=== PATIENT | female | born 1955 | race Hispanic/Latino ===

== ENCOUNTER 2020-06-27 14:15 | Outpatient (RCR) | payer BC, SELFPAY ==
--- NOTE | 2020-05-28 20:40 | PT.OIE ---
Current Diagnoses Muscle weakness (generalized) (05/28/20) Strain of muscle(s) and tendon(s) of the rotator cuff of left shoulder, initial encounter (05/28/20) Visit Care Team Role Provider Type Kristen Barriga MD Primary Care Provider Non-Staff Specialty: Family Practice Address: [address] [place] [address] [address], [place], [address] Email: Attending Provider Referring Provider Specialty: Address: Phone: Fax: Email: Physical Therapy Initial Evaluation PT-OP-A Visit Information Start: 05/27/20 17:54 Freq: Status: Active Protocol: Document 05/28/20 11:23 LRN (Rec: 05/28/20 12:19 LRN [id number]) Out-Patient Physical Therapy Visit Information Visit Information Visit Type Initial Evaluation Visit Start Time 11: Visit Stop Time 12:14 Total Visit Minutes 51 Visit Number 1 Evaluation Information Evaluation Date 05/28/20 Precautions Precautions Arthritis in shoulders, Benign Melanoma removed x 4 (back, neck, L arm deltoid region), Depression controlled by medication, Neuropathy ( burning pain if on feet too long) in feet bilaterally. PT-OP-B Current Condition Start: 05/27/20 17:54 Freq: Status: Active Protocol: Document 05/28/20 11:23 LRN (Rec: 05/28/20 12:19 LRN [id number]) Current Condition History of Current Condition Onset Date Fell 04/13/20, surgery 05/17/20 Current Complaints Pain in top of L shoulder and tender to touch, can't move shoulder. History of Current Condition Fell down steps at home, in [place], landing on L shoulder (non-dominant side), and tore it in 3 spots. Had surgery 05/17/20 with repair. Pt is 1.5 weeks post op. F/U virtual appt is tomorrow. Pt is planning on staying her with daughter until 1st or 2nd week of Jun. Pt is R handed . Pt in sling with AB pillow. Prior Treatments and Tests Pt report told by MD to do pendulum swings. Was told to take arm out of sling to shower, dress and exercise. 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 Treatment Goals Patient/Caregiver Goals care home goal: Return of ROM and strength to return to work. Pt is not sure what the short term goals are. 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 Baseline Function- Recreation/Hobbies Golf, and fishing Current Functional Impairments (Reported) Functional Limitations- ADL's Pt has difficulty with dressing, washing (self and dishes), Sleep disturbance 1x/ night. Functional Limitations- Work/School Unable to work at this time. Functional Limitations- Recreation/ Unable golf. Hobbies Personal Factors Other Personal Factors That May Effect Lives alone in [place], in Therapy/[facility] [place] at daughter's request. Is planning on being in [place] 6 weeks (until can drive). Arthritis in shoulders, benign Melanoma removed x 4 (back, neck, L arm deltoid region), Depression controlled by medication. PT-OP-C Subjective Start: 05/27/20 17:54 Freq: Status: Active Protocol: Document 05/28/20 11:23 LRN (Rec: 05/28/20 12:19 LRN [id number]) Patient Questionnaires Quick Dash- Upper Extremity Quick Dash UE Score 40.9 Quick Dash UE Impairment 40 to 59% Impaired (Score 40- 59) PT-OP-E Functional Tests Start: 05/27/20 17:54 Freq: Status: Active Protocol: Document 05/28/20 11:23 LRN (Rec: 05/28/20 12:19 LRN [id number]) Functional Tests Apley's Scratch Test Action 1- Right Back of shoulder Action 2- Right T2 Action 3- Right L4 PT-OP-H Neuro Start: 05/27/20 17:54 Freq: Status: Active Protocol: Document 05/28/20 11:23 LRN (Rec: 05/28/20 12:19 LRN [id number]) Sensation Evaluation Gross Sensation Gross Sensation WNL PT-OP-J Posture/Palpation/Skin Start: 05/27/20 17:54 Freq: Status: Active Protocol: Document 05/28/20 11:23 LRN (Rec: 05/28/20 12:19 LRN [id number]) Posture Evaluation Position Sitting Evaluation View Anterior Shoulder Posture (L) Forward Scapula Posture (L) Protracted PT-OP-K Range of Motion Start: 05/27/20 17:54 Freq: Status: Active Protocol: Document 05/28/20 11:23 LRN (Rec: 05/28/20 12:19 LRN [id number]) Cervical Spine Range of Motion Cervical Spine Active Degrees Testing Position Sitting Flexion 35 Extension 43 Rotation Left 50 Rotation Right 45 Lateral Flexion Left 22 Lateral Flexion Right 26 Shoulder Goniometric Range of Motion Shoulder Left Passive Testing Position Standing Flexion 60 Horizontal Abduction 10 Comments ROM taken during Codman's exercise. Testing was deferred due to lack of rehab protocol information. Right Active Shoulder ROM WFL Yes Testing Position Sitting Flexion 160 Extension 50 Abduction 165 External Rotation at 0 degrees Abduction 63 Internal Rotation Behind Back (text) L4 Elbow/Forearm Range of Motion Elbow/Forearm Left Active Elbow/Forearm ROM WFL No ROM Testing Position Sitting Elbow Flexion (degrees) 125 Elbow Extension (degrees) 0 Comments Active elbow ext was with elbow at side and hand hanging down towards the floor. Right Active Elbow/Forearm ROM WFL Yes ROM Testing Position Sitting Elbow Flexion (degrees) 130 Elbow Extension (degrees) 0 PT-OP-M Strength Start: 05/27/20 17:54 Freq: Status: Active Protocol: Document 05/28/20 11:23 LRN (Rec: 05/28/20 19:48 LRN [id number]) Cervical Spine Strength Cervical Spine Manual Muscle Testing Comments Deferred, due to recent surgery. Protocol precautions not available. Shoulder Strength Shoulder Manual Muscle Testing Left Comments Deferred, not appropriate due to recent surgery. Elbow/Forearm Strength Elbow and Forearm Manual Muscle Testing Left Flexion (C6) 3- Fair- Comments Not able to assess extension due necessary positioning to test not appropriate due to recent surgery. Hand Furnace Erector/Pinch Strength Hand Strength Left Comments Decreased hand squeeze when compared to R dominant side. PT-OP-Q Treatments Start: 05/27/20 17:54 Freq: Status: Active Protocol: Document 05/28/20 11:23 LRN (Rec: 05/28/20 19:48 LRN [id number]) Therapeutic Exercises Sitting Exercises L Elbow flex Sitting Exercise Name Active flexion Side left Reps/Minutes 2x Comments Arm held against body. Standing Exercises Codman Exercise Standing Exercise Name Gentle Codman's: Side to side , fwd/bkwd, circles Side left Reps/Minutes 2' Self-Care/Home Management Treatment Education Patient Education Pain Management Other Education Discussed results of evaluation. Discussed Goals and plan of care. Educated pt on avoiding active movement of L shoulder until protocol and further directions obtained regarding post-op rehabilitation. Attempted to get post-op protocol from physician by phone, message left to fax copy. Activities Self-Care/Home Management Activities I/S pt in use of cryotherapy for pain and increased temperature at the L shoulder. Discussed use of heat at neck. 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 LTG Duration 6 weeks (07/09/20) Three Impairment Decreased L shoulder PROM ( flexion 60 deg's, horiz AB 10 deg's) Short Term Goal (STG) Goals per primary physician's post-op protocol. STG Duration 4 weeks (06/25/20) Half-Way Goal (LTG) Pt will be started on a self care HEP of ROM & strengthening exercises appropriate for her condition at discharge. difficulty with dressing, washing (self and dishes) LTG Duration 6 weeks (07/09/20) Two Impairment Decreased function per UE QuickDASH score 40.9 (40-59% impaired) Half-Way Goal (LTG) Improve UE QuickDASH score no more than 27.27 (29-39% impaired) LTG Duration 6 weeks (07/09/20) One Impairment Lacks appropriate self care HEP Half-Way Goal (LTG) Pt will be independent in a self care HEP. LTG Duration 6 weeks (07/09/20) Assessment Summary Assessment Pt presents with her L shoulder in a sling resting against an abduction pillow. The pt appears to be moving her L shoulder as her sling is removed and as she attempts to don her zip up sweatshirt. She reports no pain and therefore shows no concern with movement of her L arm. The pt was advised not to actively move her L arm although it is not painful and appears to have poor awareness of maintaining PROM of the shoulder. The pt appears to be independent and voices her desire to maintain independence, stating she is independent with dressing, bathing, toileting and mobilizing in/out of bed. A post-op protocol has been requested; therefore the pt will be advised to only do PROM at the shoulder until further direction is obtained. The pt will benefit from skilled physical therapy to progress the pt towards safe return of mobility and strength, mainly focusing on preventing the pt to advance faster than her healing process will take. Her lack of pain with movement of the shoulder is a little concerning and she will be monitored and progressed cautiously due to pt's high pain tolerance. Physical Therapy Plan Frequency and Duration Frequency of Treatment 2x/Week Plan of Care Start Date 05/28/20 Plan of Care End Date 07/27/20 Therapeutic Interventions Therapeutic Interventions Aquatic Therapy,Home Exercise Program,Manual Therapy,Patient /Caregiver Education,Self-Care /Home Management,Soft Tissue Mobilization,Therapeutic Exercises Modalities Cold Pack/Ice Massage,Hot Packs Next Visit Focus/Plan Next Note Type Treatment Note Next Visit Plan Try again to obtain post-op protocol from referring physician. PROM in flexion movement, scapular motion ( retraction, depression, and in sling PNF) and trunk motion flex/scap protraction & ext/ scap retraction, cervical AROM , biceps curl. STM of UT, gentle Supraspinatus TrP treatment.
--- NOTE | 2020-05-28 20:40 | PT.OPPOC ---
Physical, Occupational & Speech Therapy At [facility] Current Diagnoses Muscle weakness (generalized) (05/28/20) Strain of muscle(s) and tendon(s) of the rotator cuff of left shoulder, initial encounter (05/28/20) Visit Care Team Role Provider Type Kristen Barriga MD Primary Care Provider Non-Staff Specialty: [facility] Address: [address] [place] [address], [place], [place], [facility] Email: Attending Provider Referring Provider Specialty: Address: Phone: Fax: Email: Plan Of Care PT-OP-T Assessment and Plan Start: 05/27/20 17:54 Freq: Status: Active Protocol: Document 05/28/20 11:23 LRN (Rec: 05/28/20 12:19 LRN [id number]) Physical Therapy Assessment Rehab Potential Rehabilitation Potential Excellent Evaluation Complexity Number of Personal Factors/Comorbidities 3 or More Number of Body Systems Impaired 4 or More Clinical Presentation at Evaluation Evolving Impairments Impairments Functional Mobility,Pain, Posture,ROM,Soft Tissue Mobility,Strength Goals Five Impairment L shoulder weakness (limited to passive movement) 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 LTG Duration 6 weeks (07/09/20) Three Impairment Decreased L shoulder PROM ( flexion 60 deg's, horiz AB 10 deg's) Short Term Goal (STG) Goals per primary physician's post-op protocol. STG Duration 4 weeks (06/25/20) Distillery Miller Helper Goal (LTG) Pt will be started on a self care HEP of ROM & strengthening exercises appropriate for her condition at discharge. difficulty with dressing, washing (self and dishes) LTG Duration 6 weeks (07/09/20) Two Impairment Decreased function per UE QuickDASH score 40.9 (40-59% impaired) Snf Goal (LTG) Improve UE QuickDASH score no more than 27.27 (29-39% impaired) LTG Duration 6 weeks (07/09/20) One Impairment Lacks appropriate self care HEP Distillery Miller Helper Goal (LTG) Pt will be independent in a self care HEP. LTG Duration 6 weeks (07/09/20) Assessment Summary Assessment Pt presents with her L shoulder in a sling resting against an abduction pillow. The pt appears to be moving her L shoulder as her sling is removed and as she attempts to don her zip up sweatshirt. She reports no pain and therefore shows no concern with movement of her L arm. The pt was advised not to actively move her L arm although it is not painful and appears to have poor awareness of maintaining PROM of the shoulder. The pt appears to be independent and voices her desire to maintain independence, stating she is independent with dressing, bathing, toileting and mobilizing in/out of bed. A post-op protocol has been requested; therefore the pt will be advised to only do PROM at the shoulder until further direction is obtained. The pt will benefit from skilled physical therapy to progress the pt towards safe return of mobility and strength, mainly focusing on preventing the pt to advance faster than her healing process will take. Her lack of pain with movement of the shoulder is a little concerning and she will be monitored and progressed cautiously due to pt's high pain tolerance. Physical Therapy Plan Frequency and Duration Frequency of Treatment 2x/Week Plan of Care Start Date 05/28/20 Plan of Care End Date 07/27/20 Therapeutic Interventions Therapeutic Interventions Aquatic Therapy,Home Exercise Program,Manual Therapy,Patient /Caregiver Education,Self-Care /Home Management,Soft Tissue Mobilization,Therapeutic Exercises Modalities Cold Pack/Ice Massage,Hot Packs Next Visit Focus/Plan Next Note Type Treatment Note Next Visit Plan Try again to obtain post-op protocol from referring physician. PROM in flexion movement, scapular motion ( retraction, depression, and in sling PNF) and trunk motion flex/scap protraction & ext/ scap retraction, cervical AROM , biceps curl. STM of [place], gentle Supraspinatus TrP treatment. Plan of Care Dates Plan of Care Start Date 05/28/20 Plan of Care End Date 07/27/20 Electronically Signed by: Catherine Guillaume, PT 05/28/202039 Please Sign and Return: I have reviewed this Plan of Care and certify that the skilled therapy services above are required to meet the patient?s needs. Physician Signature Date Printed Name and Credentials Clinical Instructor Signature Printed Name and Credentials
--- NOTE | 2020-05-30 12:27 | PT.OTN ---
Current Diagnoses Muscle weakness (generalized) (05/30/20) Strain of muscle(s) and tendon(s) of the rotator cuff of left shoulder, initial encounter (05/30/20) Physical Therapy Treatment Note PT-OP-A Visit Information Start: 05/27/20 17:54 Freq: Status: Active Protocol: Document 05/30/20 11:21 LRN (Rec: 05/30/20 12:24 LRN [id number]) Out-Patient Physical Therapy Visit Information Visit Information Visit Type Treatment Note Visit Note Dr. Navya MD protocol noted in chart. Visit Start Time 11:21 Visit Stop Time 12:07 Total Visit Minutes 46 Visit Number 2 Evaluation Information Evaluation Date 05/28/20 Precautions Precautions Arthritis in shoulders, Benign Melanoma removed x 4 (back, neck, L arm deltoid region), Depression controlled by medication, Neuropathy ( burning pain if on feet too long) in feet bilaterally. PT-OP-B Current Condition Start: 05/27/20 17:54 Freq: Status: Active Protocol: Document 05/28/20 11:23 LRN (Rec: 05/28/20 12:19 LRN [id number]) Current Condition History of Current Condition Onset Date Fell 04/13/20, surgery 05/17/20 Current Complaints Pain in top of L shoulder and tender to touch, can't move shoulder. History of Current Condition Fell down steps at home, in [place], landing on L shoulder (non-dominant side), and tore it in 3 spots. Had surgery 05/17/20 with repair. Pt is 1.5 weeks post op. F/U virtual appt is tomorrow. Pt is planning on staying her with daughter until or 2nd week of Jun. Pt is R handed . Pt in sling with AB pillow. Prior Treatments and Tests Pt report told by MD to do pendulum swings. Was told to take arm out of sling to shower, dress and exercise. 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 Treatment Goals Patient/Caregiver Goals terminal computer operator goal: Return of ROM and strength to return to work. Pt is not sure what the short term goals are. 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 Baseline Function- Recreation/Hobbies Golf, and fishing Current Functional Impairments (Reported) Functional Limitations- ADL's Pt has difficulty with dressing, washing (self and dishes), Sleep disturbance 1x/ night. Functional Limitations- Work/School Unable to work at this time. Functional Limitations- Recreation/ Unable golf. Hobbies Personal Factors Other Personal Factors That May Effect Lives alone in [place], in Therapy/Recovery [place] at daughter's request. Is planning on being in [place] 6 weeks (until can drive). Arthritis in shoulders, benign Melanoma removed x 4 (back, neck, L arm deltoid region), Depression controlled by medication. PT-OP-C Subjective Start: 05/27/20 17:54 Freq: Status: Active Protocol: Document 05/30/20 11:21 LRN (Rec: 05/30/20 12:24 LRN [id number]) OP-PT Subjective Patient Comments Patient Comments Pt brings daughter (OT) to therapy for questions. PT-OP-E Functional Tests Start: 05/27/20 17:54 Freq: Status: Active Protocol: Document 05/28/20 11:23 LRN (Rec: 05/28/20 12:19 LRN [id number]) Functional Tests Apley's Scratch Test Action 1- Right Back of shoulder Action 2- Right T2 Action 3- Right L4 PT-OP-H Neuro Start: 05/27/20 17:54 Freq: Status: Active Protocol: Document 05/28/20 11:23 LRN (Rec: 05/28/20 12:19 LRN [id number]) Sensation Evaluation Gross Sensation Gross Sensation WNL PT-OP-J Posture/Palpation/Skin Start: 05/27/20 17:54 Freq: Status: Active Protocol: Document 05/28/20 11:23 LRN (Rec: 05/28/20 12:19 LRN [id number]) Posture Evaluation Position Sitting Evaluation View Anterior Shoulder Posture (L) Forward Scapula Posture (L) Protracted PT-OP-K Range of Motion Start: 05/27/20 17:54 Freq: Status: Active Protocol: Document 05/28/20 11:23 LRN (Rec: 05/28/20 12:19 LRN [id number]) Cervical Spine Range of Motion Cervical Spine Active Degrees Testing Position Sitting Flexion 35 Extension 43 Rotation Left 50 Rotation Right 45 Lateral Flexion Left 22 Lateral Flexion Right 26 Shoulder Goniometric Range of Motion Shoulder Left Passive Testing Position Standing Flexion 60 Horizontal Abduction 10 Comments ROM taken during Codman's exercise. Testing was deferred due to lack of rehab protocol information. Right Active Shoulder ROM WFL Yes Testing Position Sitting Flexion 160 Extension 50 Abduction 165 External Rotation at 0 degrees Abduction 63 Internal Rotation Behind Back (text) L4 Elbow/Forearm Range of Motion Elbow/Forearm Left Active Elbow/Forearm ROM WFL No ROM Testing Position Sitting Elbow Flexion (degrees) 125 Elbow Extension (degrees) 0 Comments Active elbow ext was with elbow at side and hand hanging down towards the floor. Right Active Elbow/Forearm ROM WFL Yes ROM Testing Position Sitting Elbow Flexion (degrees) 130 Elbow Extension (degrees) 0 PT-OP-M Strength Start: 05/27/20 17:54 Freq: Status: Active Protocol: Document 05/28/20 11:23 LRN (Rec: 05/28/20 19:48 LRN [id number]) Cervical Spine Strength Cervical Spine Manual Muscle Testing Comments Deferred, due to recent surgery. Protocol precautions not available. Shoulder Strength Shoulder Manual Muscle Testing Left Comments Deferred, not appropriate due to recent surgery. Elbow/Forearm Strength Elbow and Forearm Manual Muscle Testing Left Flexion (C6) 3- Fair- Comments Not able to assess extension due necessary positioning to test not appropriate due to recent surgery. Hand Manager R D/Pinch Strength Hand Strength Left Comments Decreased hand squeeze when compared to R dominant side. PT-OP-Q Treatments Start: 05/27/20 17:54 Freq: Status: Active Protocol: Document 05/30/20 11:21 LRN (Rec: 05/30/20 12:24 LRN [id number]) Therapeutic Exercises Supine Exercises Passive shoulder flex Supine Exercise Name Passive shoulder flex Side left Reps/Minutes 10 hold x 10 Comments Pt had pain at end on return to neutral. Hand squeezes Supine Exercise Name Fist making Side left Reps/Minutes 30x Wrist flex/ext/UD/RD Supine Exercise Name AROM Side left Reps/Minutes 30x each. Sitting Exercises Scapular retraction Sitting Exercise Name Scapular retraction Side left Reps/Minutes 10x Comments Phys cuing needed. Neck stretches Sitting Exercise Name Neck stretches: Ext, SB, Rot Side bilateral Reps/Minutes 10S hold x 10 Comments Extra time to determine max motion Standing Exercises Codman Exercise Standing Exercise Name Codman's Side left Reps/Minutes 10x 3 Self-Care/Home Management Treatment Education Caregiver Education Discussion with pt's daughter regarding home PROM and scapular exercise. Daughter instructed that shoulder flex is apppropriate but to hold on AB & rot until further clarification of protocol. Other Education Reviewed with pt concerns she is using her L shoulder/elbow too much and to stop using L arm to wash under R arm. Pt to use cryotherapy immediately on return to home when choosing not to ice in clinic. Activities Self-Care/Home Management Activities Pt I/S verbally to add: hand assistant food service director, wrist flex/ext/UD/RD, neck AROM, and scapular pinch to home exercises. I/S pt to do Omar's more and low reps, but she can increase reps by 2 if feeling good. Encouraged pt walk for activity since pt is feeling she can't sit still. Contacted MD office for question regarding ROM to progress with specifically AB and rotation (questioning if there are limitations). PT-OP-T Assessment and Plan Start: 05/27/20 17:54 Freq: Status: Active Protocol: Document 05/30/20 11:21 LRN (Rec: 05/30/20 12:24 LRN [id number]) Physical Therapy Assessment Goals Five Impairment L shoulder weakness (limited to passive movement) Juvenile Justice Specialist Goal (LTG) Improve active strength per protocol to improve ability to dress herself (pull up her pants) and wash her R arm or to do wash dishes (if appropriate per post-op protocol) LTG Duration 6 weeks (07/09/20) Four Impairment L shoulder pain rated 6/10 hindering sleep (waking 1x due to shldr pain) Juvenile Justice Specialist Goal (LTG) Pt will not experience sleep disturbance due to L shoulder pain. LTG Duration 6 weeks (07/09/20) Three Impairment Decreased L shoulder PROM ( flexion 60 deg's, horiz AB 10 deg's) Short Term Goal (STG) Goals per primary physician's post-op protocol. STG Duration 4 weeks (06/25/20) Penitentiary Goal (LTG) Pt will be started on a self care HEP of ROM & strengthening exercises appropriate for her condition at discharge. difficulty with dressing, washing (self and dishes) LTG Duration 6 weeks (07/09/20) Two Impairment Decreased function per UE QuickDASH score 40.9 (40-59% impaired) Penitentiary Goal (LTG) Improve UE QuickDASH score no more than 27.27 (29-39% impaired) LTG Duration 6 weeks (07/09/20) One Impairment Lacks appropriate self care HEP Juvenile Justice Specialist Goal (LTG) Pt will be independent in a self care HEP. LTG Duration 6 weeks (07/09/20) (05/30/20: Progressing per verbal instructions) Progress Towards Goals Progress Comments Progressed self HEP exercises she could do. Assessment Summary Assessment MD post-op protocol received. L Scap retraction. Poor tolerance to supine lying and with transition of movement in reclined position of ~50 deg' s. Pt was using her L arm to adjust her R shoe lace today and needed cuing to stop. She was assisting with shoulder elevation/ext and elbow flex to remove her L shoulder from the sling and needed cuing to be passive. Pt Passive shoulder flex ~85 deg's. Physical Therapy Plan Frequency and Duration Frequency of Treatment 2x/Week Plan of Care Start Date 05/28/20 Plan of Care End Date 07/27/20 Next Visit Focus/Plan Next Note Type Treatment Note Next Visit Plan Try to obtain post-op rehab ROM precautions of movement limitation for 2-4 weeks timeframe from referring physician. PROM in flexion movement, scapular motion ( retraction, and ?in sling PNF) and trunk motion flex/scap protraction & ext/scap retraction, cervical AROM. STM of UT, gentle Supraspinatus TrP treatment. Ultrasound to L biceps for edema management due to brusing.
--- NOTE | 2020-05-30 16:24 | PT-OP ANOTE ---
Message received from Luna @ Dr. Mendosa's office with verbal instructions for Yes, all ROM as tolerable by patient
--- NOTE | 2020-06-04 13:58 | PT.OTN ---
Current Diagnoses Muscle weakness (generalized) (06/04/20) Strain of muscle(s) and tendon(s) of the rotator cuff of left shoulder, initial encounter (06/04/20) Physical Therapy Treatment Note PT-OP-A Visit Information Start: 05/27/20 17:54 Freq: Status: Active Protocol: Document 06/04/20 13:00 MB (Rec: 06/04/20 13:48 MB [id number]) Out-Patient Physical Therapy Visit Information Visit Information Visit Type Treatment Note Visit Start Time 13:00 Visit Stop Time 13:45 Total Visit Minutes 45 Visit Number 3 PT-OP-B Current Condition Start: 05/27/20 17:54 Freq: Status: Active Protocol: Document 05/28/20 11:23 LRN (Rec: 05/28/20 12:19 LRN [id number]) Current Condition History of Current Condition Onset Date Fell 04/13/20, surgery 05/17/20 Current Complaints Pain in top of L shoulder and tender to touch, can't move shoulder. History of Current Condition Fell down steps at home, in [place], landing on L shoulder (non-dominant side), and tore it in 3 spots. Had surgery 05/17/20 with repair. Pt is 1.5 weeks post op. F/U virtual appt is tomorrow. Pt is planning on staying her with daughter until 1st or 2nd week of Jun. Pt is R handed . Pt in sling with AB pillow. Prior Treatments and Tests Pt report told by MD to do pendulum swings. Was told to take arm out of sling to shower, dress and exercise. 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 Treatment Goals Patient/Caregiver Goals prison goal: Return of ROM and strength to return to work. Pt is not sure what the short term goals are. 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 Baseline Function- Recreation/Hobbies Golf, and fishing Current Functional Impairments (Reported) Functional Limitations- ADL's Pt has difficulty with dressing, washing (self and dishes), Sleep disturbance 1x/ night. Functional Limitations- Work/School Unable to work at this time. Functional Limitations- Recreation/ Unable golf. Hobbies Personal Factors Other Personal Factors That May Effect Lives alone in [place], in Therapy/Recovery [place] at daughter's request. Is planning on being in [place] 6 weeks (until can drive). Arthritis in shoulders, benign Melanoma removed x 4 (back, neck, L arm deltoid region), Depression controlled by medication. PT-OP-C Subjective Start: 05/27/20 17:54 Freq: Status: Active Protocol: Document 06/04/20 13:00 MB (Rec: 06/04/20 13:51 MB [id number]) OP-PT Subjective Patient Comments Patient Comments My daughter is impressed with my range of motion. Pt states that her daughter who is an OT is helping her with PROM. PT-OP-E Functional Tests Start: 05/27/20 17:54 Freq: Status: Active Protocol: Document 05/28/20 11:23 LRN (Rec: 05/28/20 12:19 LRN [id number]) Functional Tests Apley's Scratch Test Action 1- Right Back of shoulder Action 2- Right T2 Action 3- Right L4 PT-OP-H Neuro Start: 05/27/20 17:54 Freq: Status: Active Protocol: Document 05/28/20 11:23 LRN (Rec: 05/28/20 12:19 LRN [id number]) Sensation Evaluation Gross Sensation Gross Sensation WNL PT-OP-J Posture/Palpation/Skin Start: 05/27/20 17:54 Freq: Status: Active Protocol: Document 05/28/20 11:23 LRN (Rec: 05/28/20 12:19 LRN [id number]) Posture Evaluation Position Sitting Evaluation View Anterior Shoulder Posture (L) Forward Scapula Posture (L) Protracted PT-OP-K Range of Motion Start: 05/27/20 17:54 Freq: Status: Active Protocol: Document 05/28/20 11:23 LRN (Rec: 05/28/20 12:19 LRN [id number]) Cervical Spine Range of Motion Cervical Spine Active Degrees Testing Position Sitting Flexion 35 Extension 43 Rotation Left 50 Rotation Right 45 Lateral Flexion Left 22 Lateral Flexion Right 26 Shoulder Goniometric Range of Motion Shoulder Left Passive Testing Position Standing Flexion 60 Horizontal Abduction 10 Comments ROM taken during Codman's exercise. Testing was deferred due to lack of rehab protocol information. Right Active Shoulder ROM WFL Yes Testing Position Sitting Flexion 160 Extension 50 Abduction 165 External Rotation at 0 degrees Abduction 63 Internal Rotation Behind Back (text) L4 Elbow/Forearm Range of Motion Elbow/Forearm Left Active Elbow/Forearm ROM WFL No ROM Testing Position Sitting Elbow Flexion (degrees) 125 Elbow Extension (degrees) 0 Comments Active elbow ext was with elbow at side and hand hanging down towards the floor. Right Active Elbow/Forearm ROM WFL Yes ROM Testing Position Sitting Elbow Flexion (degrees) 130 Elbow Extension (degrees) 0 PT-OP-M Strength Start: 05/27/20 17:54 Freq: Status: Active Protocol: Document 05/28/20 11:23 LRN (Rec: 05/28/20 19:48 LRN [id number]) Cervical Spine Strength Cervical Spine Manual Muscle Testing Comments Deferred, due to recent surgery. Protocol precautions not available. Shoulder Strength Shoulder Manual Muscle Testing Left Comments Deferred, not appropriate due to recent surgery. Elbow/Forearm Strength Elbow and Forearm Manual Muscle Testing Left Flexion (C6) 3- Fair- Comments Not able to assess extension due necessary positioning to test not appropriate due to recent surgery. Hand Food Service Attendant/Pinch Strength Hand Strength Left Comments Decreased hand squeeze when compared to R dominant side. PT-OP-Q Treatments Start: 05/27/20 17:54 Freq: Status: Active Protocol: Document 06/04/20 13:00 MB (Rec: 06/04/20 13:51 MB [id number]) Therapeutic Exercises Sitting Exercises Upper traps mobilization with movement (MWM) Side left Equipment Used Racquet ball Comments Racquet ball at upper traps, supraspinatus TrP and pt active cervical rotat Standing Exercises Racquet ball infraspinatus and deltoid STM Side left Equipment Used Racquet ball in sock Comments Body 90 deg from wall for delt ; 45 deg from wall for infraspinatus Racquet ball self-massage Side left Equipment Used Racquet ball in sock Comments Intrascapular area, pulsate into wall/ball, cervical rotation Arm dangle and scapular retraction when sling doffed Side left Comments Ed pt in this position to improve posture Codman Exercise Side left Reps/Minutes 5 reps x2 Manual Therapy Treatment Other Other Manual Treatments Pt prone: thoracic PA mobs grade III-IV, B scapular mobs to assess the right to compare with the left and more treatment on the left, STM upper traps PT-OP-T Assessment and Plan Start: 05/27/20 17:54 Freq: Status: Active Protocol: Document 06/04/20 13:00 MB (Rec: 06/04/20 13:48 MB [id number]) Physical Therapy Assessment Goals Five Impairment L shoulder weakness (limited to passive movement) Police Dispatcher Goal (LTG) Improve active strength per protocol to improve ability to dress herself (pull up her pants) and wash her R arm or to do wash dishes (if appropriate per post-op protocol) LTG Duration 6 weeks (07/09/20) Four Impairment L shoulder pain rated 6/10 hindering sleep (waking 1x due to shldr pain) Prison Goal (LTG) Pt will not experience sleep disturbance due to L shoulder pain. LTG Duration 6 weeks (07/09/20) Three Impairment Decreased L shoulder PROM ( flexion 60 deg's, horiz AB 10 deg's) Short Term Goal (STG) Goals per primary physician's post-op protocol. STG Duration 4 weeks (06/25/20) Police Dispatcher Goal (LTG) Pt will be started on a self care HEP of ROM & strengthening exercises appropriate for her condition at discharge. difficulty with dressing, washing (self and dishes) LTG Duration 6 weeks (07/09/20) Two Impairment Decreased function per UE QuickDASH score 40.9 (40-59% impaired) Prison Goal (LTG) Improve UE QuickDASH score no more than 27.27 (29-39% impaired) LTG Duration 6 weeks (07/09/20) One Impairment Lacks appropriate self care HEP Police Dispatcher Goal (LTG) Pt will be independent in a self care HEP. LTG Duration 6 weeks (07/09/20) (05/30/20: Progressing per verbal instructions) Assessment Summary Assessment Initiated thoracic and scapular mobs today and pt responds well to treatment. Added self-STM with racquet ball in sock to HEP to work on TrP left infraspinatus, supraspinatus, deltoid and upper traps as well as thoracic paraspinals and pt responds well to exercise and treatment. Con't progression. Iced left shoulder after treatment. Physical Therapy Plan Frequency and Duration Frequency of Treatment 2x/Week Plan of Care Start Date 05/28/20 Plan of Care End Date 07/27/20 Next Visit Focus/Plan Next Note Type Treatment Note Next Visit Plan Ongoing thoracic and scapular mobilization. PROM in flexion movement, scapular motion ( retraction, and ?in sling PNF) and trunk motion flex/scap protraction & ext/scap retraction, cervical AROM. STM of UT, gentle Supraspinatus TrP treatment. Ultrasound to L biceps for edema management due to bruising.
--- NOTE | 2020-06-06 15:24 | PT.OTN ---
Current Diagnoses Muscle weakness (generalized) (06/06/20) Strain of muscle(s) and tendon(s) of the rotator cuff of left shoulder, initial encounter (06/06/20) Physical Therapy Treatment Note PT-OP-A Visit Information Start: 05/27/20 17:54 Freq: Status: Active Protocol: Document 06/06/20 14:35 (Rec: 06/06/20 15:50 [email or web address]) Out-Patient Physical Therapy Visit Information Visit Information Visit Type Treatment Note Visit Note PAM Goodwin led tx under direct supervision of Marva ORTEGA. Visit Start Time 14:35 Visit Stop Time 15:24 Total Visit Minutes 49 Visit Number 4 Number of HAND TIRE TRIMMER Visits 1 PT-OP-B Current Condition Start: 05/27/20 17:54 Freq: Status: Active Protocol: Document 05/28/20 11:23 LRN (Rec: 05/28/20 12:19 LRN [id number]) Current Condition History of Current Condition Onset Date Fell 04/13/20, surgery 05/17/20 Current Complaints Pain in top of L shoulder and tender to touch, can't move shoulder. History of Current Condition Fell down steps at home, in [place], landing on L shoulder (non-dominant side), and tore it in 3 spots. Had surgery 05/17/20 with repair. Pt is 1.5 weeks post op. F/U virtual appt is tomorrow. Pt is planning on staying her with daughter until 1st or 2nd week of Jun. Pt is R handed . Pt in sling with AB pillow. Prior Treatments and Tests Pt report told by MD to do pendulum swings. Was told to take arm out of sling to shower, dress and exercise. 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 Treatment Goals Patient/Caregiver Goals penitentiary goal: Return of ROM and strength to return to work. Pt is not sure what the short term goals are. 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 Baseline Function- Recreation/Hobbies Golf, and fishing Current Functional Impairments (Reported) Functional Limitations- ADL's Pt has difficulty with dressing, washing (self and dishes), Sleep disturbance 1x/ night. Functional Limitations- Work/School Unable to work at this time. Functional Limitations- Recreation/ Unable golf. Hobbies Personal Factors Other Personal Factors That May Effect Lives alone in [place], in Therapy/Recovery [place] at daughter's request. Is planning on being in [place] 6 weeks (until can drive). Arthritis in shoulders, benign Melanoma removed x 4 (back, neck, L arm deltoid region), Depression controlled by medication. PT-OP-C Subjective Start: 05/27/20 17:54 Freq: Status: Active Protocol: Document 06/06/20 14:35 (Rec: 06/06/20 15:50 [email or web address]) OP-PT Subjective Patient Comments Patient Comments Pt working on post op pendulums. Daughter is working w/ PROM. Daughter is an OT. PT-OP-E Functional Tests Start: 05/27/20 17:54 Freq: Status: Active Protocol: Document 05/28/20 11:23 LRN (Rec: 05/28/20 12:19 LRN [id number]) Functional Tests Apley's Scratch Test Action 1- Right Back of shoulder Action 2- Right T2 Action 3- Right L4 PT-OP-H Neuro Start: 05/27/20 17:54 Freq: Status: Active Protocol: Document 05/28/20 11:23 LRN (Rec: 05/28/20 12:19 LRN [id number]) Sensation Evaluation Gross Sensation Gross Sensation WNL PT-OP-J Posture/Palpation/Skin Start: 05/27/20 17:54 Freq: Status: Active Protocol: Document 05/28/20 11:23 LRN (Rec: 05/28/20 12:19 LRN [id number]) Posture Evaluation Position Sitting Evaluation View Anterior Shoulder Posture (L) Forward Scapula Posture (L) Protracted PT-OP-K Range of Motion Start: 05/27/20 17:54 Freq: Status: Active Protocol: Document 05/28/20 11:23 LRN (Rec: 05/28/20 12:19 LRN [id number]) Cervical Spine Range of Motion Cervical Spine Active Degrees Testing Position Sitting Flexion 35 Extension 43 Rotation Left 50 Rotation Right 45 Lateral Flexion Left 22 Lateral Flexion Right 26 Shoulder Goniometric Range of Motion Shoulder Left Passive Testing Position Standing Flexion 60 Horizontal Abduction 10 Comments ROM taken during Codman's exercise. Testing was deferred due to lack of rehab protocol information. Right Active Shoulder ROM WFL Yes Testing Position Sitting Flexion 160 Extension 50 Abduction 165 External Rotation at 0 degrees Abduction 63 Internal Rotation Behind Back (text) L4 Elbow/Forearm Range of Motion Elbow/Forearm Left Active Elbow/Forearm ROM WFL No ROM Testing Position Sitting Elbow Flexion (degrees) 125 Elbow Extension (degrees) 0 Comments Active elbow ext was with elbow at side and hand hanging down towards the floor. Right Active Elbow/Forearm ROM WFL Yes ROM Testing Position Sitting Elbow Flexion (degrees) 130 Elbow Extension (degrees) 0 PT-OP-M Strength Start: 05/27/20 17:54 Freq: Status: Active Protocol: Document 05/28/20 11:23 LRN (Rec: 05/28/20 19:48 LRN [id number]) Cervical Spine Strength Cervical Spine Manual Muscle Testing Comments Deferred, due to recent surgery. Protocol precautions not available. Shoulder Strength Shoulder Manual Muscle Testing Left Comments Deferred, not appropriate due to recent surgery. Elbow/Forearm Strength Elbow and Forearm Manual Muscle Testing Left Flexion (C6) 3- Fair- Comments Not able to assess extension due necessary positioning to test not appropriate due to recent surgery. Hand Aircraft Structural Repair Mechanic/Pinch Strength Hand Strength Left Comments Decreased hand squeeze when compared to R dominant side. PT-OP-Q Treatments Start: 05/27/20 17:54 Freq: Status: Active Protocol: Document 06/06/20 14:35 (Rec: 06/06/20 15:50 [email or web address]) Therapeutic Exercises Supine Exercises Hand squeezes Comments Verbal discussion performing at home Wrist flex/ext/UD/RD Comments verbal discussion performing at home. Sitting Exercises Upper traps mobilization with movement (MWM) Sitting Exercise Name Review HEP Side left Equipment Used Racquet ball Comments Racquet ball at upper traps, supraspinatus TrP and pt active cervical rotat Scapular retraction Sitting Exercise Name Scapular retraction Side bilateral Resistance AROM Reps/Minutes 5s hold Comments cued chest lift. Neck stretches Sitting Exercise Name SB, Rot, Ext Side bilateral Reps/Minutes 10s hold ea direction L Elbow flex Comments verbal edu PROM via R UE per precautions PROM until wk 4- *readddress next tx. Standing Exercises Racquet ball infraspinatus and deltoid STM Standing Exercise Name Review HEP Side left Equipment Used Racquet ball in sock Comments Body 90 deg from wall for delt ; 45 deg from wall for infraspinatus Racquet ball self-massage Standing Exercise Name Review HEP. Side left Equipment Used Racquet ball in sock Comments Intrascapular area, pulsate into wall/ball, cervical rotation Codman Exercise Standing Exercise Name Codman's (pendulums) Side left Reps/Minutes 10x 3 Comments good form. Manual Therapy Treatment Manual Techniques Shoulder PROM Type FF, ABD IR/ER PROM Body Location L Shoulder Body Position Supine Reps/Duration 15x ea direction PT-OP-R Modalities Start: 05/27/20 17:54 Freq: Status: Active Protocol: Document 06/06/20 14:35 (Rec: 06/06/20 15:50 [email or web address]) Hot Pack/Cold Pack Treatment Cryo cuff Location L shoulder Patient Position Sitting Treatment Duration (minutes) 10 Patient Tolerance Good PT-OP-T Assessment and Plan Start: 05/27/20 17:54 Freq: Status: Active Protocol: Document 06/06/20 14:35 (Rec: 06/06/20 15:50 [email or web address]) Physical Therapy Assessment Goals Five Impairment L shoulder weakness (limited to passive movement) Fdc Goal (LTG) Improve active strength per protocol to improve ability to dress herself (pull up her pants) and wash her R arm or to do wash dishes (if appropriate per post-op protocol) LTG Duration 6 weeks (07/09/20) Four Impairment L shoulder pain rated 6/10 hindering sleep (waking 1x due to shldr pain) Fdc Goal (LTG) Pt will not experience sleep disturbance due to L shoulder pain. LTG Duration 6 weeks (07/09/20) Three Impairment Decreased L shoulder PROM ( flexion 60 deg's, horiz AB 10 deg's) Short Term Goal (STG) Goals per primary physician's post-op protocol. STG Duration 4 weeks (06/25/20) Supervisor Braiding Goal (LTG) Pt will be started on a self care HEP of ROM & strengthening exercises appropriate for her condition at discharge. difficulty with dressing, washing (self and dishes) LTG Duration 6 weeks (07/09/20) Two Impairment Decreased function per UE QuickDASH score 40.9 (40-59% impaired) Fdc Goal (LTG) Improve UE QuickDASH score no more than 27.27 (29-39% impaired) LTG Duration 6 weeks (07/09/20) One Impairment Lacks appropriate self care HEP Fdc Goal (LTG) Pt will be independent in a self care HEP. LTG Duration 6 weeks (07/09/20) (05/30/20: Progressing per verbal instructions) Assessment Summary Assessment Reviewed HEP with patient. Performed L shoulder PROM FF, ABD <=90 deg, IR/ER. Pts ROM improved after several repetitions and she responded well to the movement. Pt progressing well through protocol set up after post op. Finished tx w/ cryo cuff to L shoulder, pts states feels good and like it worked. Physical Therapy Plan Frequency and Duration Frequency of Treatment 2x/Week Plan of Care Start Date 05/28/20 Plan of Care End Date 07/27/20 Next Visit Focus/Plan Next Note Type Treatment Note Next Visit Plan Review ball roll upper trap at wall and not going over pec. Ongoing thoracic and scapular mobilization. PROM in flexion movement, scapular motion ( retraction, and ?in sling PNF) and trunk motion flex/scap protraction & ext/scap retraction, cervical AROM. STM of UT, gentle Supraspinatus TrP treatment. Ultrasound to L biceps for edema management due to bruising. Cryo cuff to L shoulder.
--- NOTE | 2020-06-11 12:26 | PT.OTN ---
Current Diagnoses Muscle weakness (generalized) (06/11/20) Strain of muscle(s) and tendon(s) of the rotator cuff of left shoulder, initial encounter (06/11/20) Physical Therapy Treatment Note PT-OP-A Visit Information Start: 05/27/20 17:54 Freq: Status: Active Protocol: Document 06/11/20 11:21 LRN (Rec: 06/11/20 12:25 LRN [id number]) Out-Patient Physical Therapy Visit Information Visit Information Visit Type Treatment Note Visit Note 4wks post op in 3 days. Message received by Luna Mendosa's office: Yes to all ROM as tolerable by pt. Per protocol (wks 4-6): Flex limited to 120 degs and ER limited to 15 deg's Visit Start Time 11:22 Visit Stop Time 12:10 Total Visit Minutes 48 Visit Number 5 Evaluation Information Evaluation Date 05/28/20 Precautions Precautions Arthritis in shoulders, Benign Melanoma removed x 4 (back, neck, L arm deltoid region), Depression controlled by medication, Neuropathy ( burning pain if on feet too long) in feet bilaterally. PT-OP-B Current Condition Start: 05/27/20 17:54 Freq: Status: Active Protocol: Document 05/28/20 11:23 LRN (Rec: 05/28/20 12:19 LRN [id number]) Current Condition History of Current Condition Onset Date Fell 04/13/20, surgery 05/17/20 Current Complaints Pain in top of L shoulder and tender to touch, can't move shoulder. History of Current Condition Fell down steps at home, in [place], landing on L shoulder (non-dominant side), and tore it in 3 spots. Had surgery 05/17/20 with repair. Pt is 1.5 weeks post op. F/U virtual appt is tomorrow. Pt is planning on staying her with daughter until 1st or 2nd week of Jun. Pt is R handed . Pt in sling with AB pillow. Prior Treatments and Tests Pt report told by to do pendulum swings. Was told to take arm out of sling to shower, dress and exercise. 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 Pt is not sure what the short term goals are. 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 Baseline Function- Recreation/Hobbies Golf, and fishing Current Functional Impairments (Reported) Functional Limitations- ADL's Pt has difficulty with dressing, washing (self and dishes), Sleep disturbance 1x/ night. Functional Limitations- Work/School Unable to work at this time. Functional Limitations- Recreation/ Unable golf. Hobbies Personal Factors Other Personal Factors That May Effect Lives alone in [place], in Therapy/Recovery [place] at daughter's request. Is planning on being in [place] 6 weeks (until can drive). Arthritis in shoulders, benign Melanoma removed x 4 (back, neck, L arm deltoid region), Depression controlled by medication. PT-OP-C Subjective Start: 05/27/20 17:54 Freq: Status: Active Protocol: Document 06/11/20 11:21 LRN (Rec: 06/11/20 12:25 LRN [id number]) OP-PT Subjective Patient Comments Patient Comments States she is doing really good. DA told her, her L shoulder PROM is 90 deg's. Da works with her daily. Pain is 3/10. not using it too much. Doesn't always wear her AB soft shoulder brace after showering. PT-OP-E Functional Tests Start: 05/27/20 17:54 Freq: Status: Active Protocol: Document 05/28/20 11:23 LRN (Rec: 05/28/20 12:19 LRN [id number]) Functional Tests Apley's Scratch Test Action 1- Right Back of shoulder Action 2- Right T2 Action 3- Right L4 PT-OP-H Neuro Start: 05/27/20 17:54 Freq: Status: Active Protocol: Document 05/28/20 11:23 LRN (Rec: 05/28/20 12:19 LRN [id number]) Sensation Evaluation Gross Sensation Gross Sensation WNL PT-OP-J Posture/Palpation/Skin Start: 05/27/20 17:54 Freq: Status: Active Protocol: Document 05/28/20 11:23 LRN (Rec: 05/28/20 12:19 LRN [id number]) Posture Evaluation Position Sitting Evaluation View Anterior Shoulder Posture (L) Forward Scapula Posture (L) Protracted PT-OP-K Range of Motion Start: 05/27/20 17:54 Freq: Status: Active Protocol: Document 06/11/20 11:21 LRN (Rec: 06/11/20 12:25 LRN [id number]) Shoulder Goniometric Range of Motion Shoulder Left Passive Testing Position Supine Flexion 90 Abduction 60 External Rotation at 0 degrees Abduction 0 Internal Rotation 15 Comments IR PROM: with L shoulder AB 60 degs. PT-OP-M Strength Start: 05/27/20 17:54 Freq: Status: Active Protocol: Document 05/28/20 11:23 LRN (Rec: 05/28/20 19:48 LRN [id number]) Cervical Spine Strength Cervical Spine Manual Muscle Testing Comments Deferred, due to recent surgery. Protocol precautions not available. Shoulder Strength Shoulder Manual Muscle Testing Left Comments Deferred, not appropriate due to recent surgery. Elbow/Forearm Strength Elbow and Forearm Manual Muscle Testing Left Flexion (C6) 3- Fair- Comments Not able to assess extension due necessary positioning to test not appropriate due to recent surgery. Hand Physical Integration Practitioner/Pinch Strength Hand Strength Left Comments Decreased hand squeeze when compared to R dominant side. PT-OP-Q Treatments Start: 05/27/20 17:54 Freq: Status: Active Protocol: Document 06/11/20 11:21 LRN (Rec: 06/11/20 12:25 LRN [id number]) Therapeutic Exercises Supine Exercises C. SB, rot stretch Supine Exercise Name C. AROM stretch SB, Rot Side bilateral Reps/Minutes 4' Passive shoulder flex Supine Exercise Name See manual therapy Hand squeezes Supine Exercise Name Hand squeeze Equipment Used Green T-Putty Sidelying Exercises Scapular Depression Sidelying Exercise Name Scapular Depression Side left Reps/Minutes 10x -2' Comments Phy Cuing of scapula Scapular Retraction/Protraction Sidelying Exercise Name Scapular Retraction/ Protraction Side left Reps/Minutes 10x -2' Comments Phy Cuing of scapula Sitting Exercises Scapular retraction Sitting Exercise Name Scapular retraction Side bilateral Resistance AROM Reps/Minutes 10x Comments cued chest lift. Neck stretches Sitting Exercise Name Neck AROM (rot & ext stretch) Side bilateral Reps/Minutes 10s hold ext Manual Therapy Treatment Manual Techniques Shoulder PROM Type FF, ABD IR/ER PROM Body Location L Shoulder Body Position Supine Reps/Duration 25' Self-Care/Home Management Treatment Education Patient Education Home Exercise Program Other Education Educated pt in shoulder flex 120 degs and ER 30 degs. Activities Self-Care/Home Management Activities Issued [email or web address] [employer] program PT-OP-R Modalities Start: 05/27/20 17:54 Freq: Status: Active Protocol: Document 06/11/20 11:21 LRN (Rec: 06/11/20 12:25 LRN [id number]) Hot Pack/Cold Pack Treatment Hot Pack Location L shoulder during PROM Patient Position Supine Patient Tolerance Good Cryo cuff Location L shoulder Patient Position Supine Treatment Duration (minutes) 10 Patient Tolerance Good PT-OP-T Assessment and Plan Start: 05/27/20 17:54 Freq: Status: Active Protocol: Document 06/11/20 11:21 LRN (Rec: 06/11/20 12:25 LRN [id number]) Physical Therapy Assessment Goals Five Impairment L shoulder weakness (limited to passive movement) Alf Goal (LTG) Improve active strength per protocol to improve ability to dress herself (pull up her pants) and wash her R arm or to do wash dishes (if appropriate per post-op protocol) LTG Duration 6 weeks (07/09/20) Four Impairment L shoulder pain rated 6/10 hindering sleep (waking 1x due to shldr pain) Collar Baster Jumpbasting Goal (LTG) Pt will not experience sleep disturbance due to L shoulder pain. LTG Duration 6 weeks (07/09/20) Three Impairment Decreased L shoulder PROM ( flexion 60 deg's, horiz AB 10 deg's) Short Term Goal (STG) Goals per primary physician's post-op protocol. STG Duration 4 weeks (06/25/20) Collar Baster Jumpbasting Goal (LTG) Pt will be started on a self care HEP of ROM & strengthening exercises appropriate for her condition at discharge. difficulty with dressing, washing (self and dishes) LTG Duration 6 weeks (07/09/20) (06/11/20: Progressing) Two Impairment Decreased function per UE QuickDASH score 40.9 (40-59% impaired) Collar Baster Jumpbasting Goal (LTG) Improve UE QuickDASH score no more than 27.27 (29-39% impaired) LTG Duration 6 weeks (07/09/20) One Impairment Lacks appropriate self care HEP Collar Baster Jumpbasting Goal (LTG) Pt will be independent in a self care HEP. LTG Duration 6 weeks (07/09/20) (06/11/20: Progressing) Progress Towards Goals Progress Comments Pt able to tolerate supine lying without pain if pillow positioned under L arm and head. Assessment Summary Assessment Good tolerance to L shoulder PROM exercises. Pt PROM L shoulder in supine: FF 90 degs, ER 0 degs, AB 60 degs. Next visit pt will be 4 weeks post op. Pt appears to be doing well on HEP except she is only doing it 1x/day. Pt is encouraged to increase to 2x/day. Pt may need to do 3x/ day. Physical Therapy Plan Frequency and Duration Frequency of Treatment 2x/Week Plan of Care Start Date 05/28/20 Plan of Care End Date 07/27/20 Next Visit Focus/Plan Next Note Type Treatment Note Next Visit Plan Add resisted Scap stabilization, wrist/hand ROM. Increase HEP to 3x/day. PROM in flexion movement, scapular motion (PNF out of sling if pt can do without using L shoulder) and trunk motion flex/scap protraction & ext/scap retraction, cervical AROM. Cryo cuff to L shoulder to end. MH if helpful during PROM. SEE PROTOCOL in chart.
--- NOTE | 2020-06-13 13:48 | PT.OTN ---
Current Diagnoses Muscle weakness (generalized) (06/13/20) Strain of muscle(s) and tendon(s) of the rotator cuff of left shoulder, initial encounter (06/13/20) Physical Therapy Treatment Note PT-OP-A Visit Information Start: 05/27/20 17:54 Freq: Status: Active Protocol: Document 06/13/20 11:20 LRN (Rec: 06/13/20 12:03 LRN [id number]) Out-Patient Physical Therapy Visit Information Visit Information Visit Type Treatment Note Visit Note Pt s/p 4 weeks tomorrow. Visit Start Time : Visit Stop Time 12:00 Total Visit Minutes 40 Visit Number 6 Evaluation Information Evaluation Date 05/28/20 Precautions Precautions Arthritis in shoulders, Benign Melanoma removed x 4 (back, neck, L arm deltoid region), Depression controlled by medication, Neuropathy ( burning pain if on feet too long) in feet bilaterally. PT-OP-B Current Condition Start: 05/27/20 17:54 Freq: Status: Active Protocol: Document 05/28/20 11:23 LRN (Rec: 05/28/20 12:19 LRN [id number]) Current Condition History of Current Condition Onset Date Fell 04/13/20, surgery 05/17/20 Current Complaints Pain in top of L shoulder and tender to touch, can't move shoulder. History of Current Condition Fell down steps at home, in [place], landing on L shoulder (non-dominant side), and tore it in 3 spots. Had surgery 05/17/20 with repair. Pt is 1.5 weeks post op. F/U virtual appt is tomorrow. Pt is planning on staying her with daughter until or 2nd week of Jun. Pt is R handed . Pt in sling with AB pillow. Prior Treatments and Tests Pt report told by MD to do pendulum swings. Was told to take arm out of sling to shower, dress and exercise. 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 Treatment Goals Patient/Caregiver Goals [facility] goal: Return of ROM and strength to return to work. Pt is not sure what the short term goals are. Prior Functional Status Baseline Function- ADL's Independent Baseline Function- Mobility Independent Baseline Function- Work/School Worked FT as 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 Baseline Function- Recreation/Hobbies Golf, and fishing Current Functional Impairments (Reported) Functional Limitations- ADL's Pt has difficulty with dressing, washing (self and dishes), Sleep disturbance 1x/ night. Functional Limitations- Work/School Unable to work at this time. Functional Limitations- Recreation/ Unable golf. Hobbies Personal Factors Other Personal Factors That May Effect Lives alone in [place], in Therapy/Recovery [place] at daughter's request. Is planning on being in [place] 6 weeks (until can drive). Arthritis in shoulders, benign Melanoma removed x 4 (back, neck, L arm deltoid region), Depression controlled by medication. PT-OP-C Subjective Start: 05/27/20 17:54 Freq: Status: Active Protocol: Document 06/13/20 11:20 LRN (Rec: 06/13/20 12:03 LRN [id number]) OP-PT Subjective Patient Comments Patient Comments Going well, did ice this morning, not exercise. DA couldn't come because working so she will come next treatment to learn how she should be helping her in the new phase. PT-OP-E Functional Tests Start: 05/27/20 17:54 Freq: Status: Active Protocol: Document 05/28/20 11:23 LRN (Rec: 05/28/20 12:19 LRN [id number]) Functional Tests Apley's Scratch Test Action 1- Right Back of shoulder Action 2- Right T2 Action 3- Right L4 PT-OP-H Neuro Start: 05/27/20 17:54 Freq: Status: Active Protocol: Document 05/28/20 11:23 LRN (Rec: 05/28/20 12:19 LRN [id number]) Sensation Evaluation Gross Sensation Gross Sensation WNL PT-OP-J Posture/Palpation/Skin Start: 05/27/20 17:54 Freq: Status: Active Protocol: Document 05/28/20 11:23 LRN (Rec: 05/28/20 12:19 LRN [id number]) Posture Evaluation Position Sitting Evaluation View Anterior Shoulder Posture (L) Forward Scapula Posture (L) Protracted PT-OP-K Range of Motion Start: 05/27/20 17:54 Freq: Status: Active Protocol: Document 06/13/20 11:20 LRN (Rec: 06/13/20 12:03 LRN [id number]) Shoulder Goniometric Range of Motion Shoulder Left Passive Testing Position Supine Flexion 105 Abduction 62 External Rotation at 0 degrees Abduction 10 PT-OP-M Strength Start: 05/27/20 17:54 Freq: Status: Active Protocol: Document 05/28/20 11:23 LRN (Rec: 05/28/20 19:48 LRN [id number]) Cervical Spine Strength Cervical Spine Manual Muscle Testing Comments Deferred, due to recent surgery. Protocol precautions not available. Shoulder Strength Shoulder Manual Muscle Testing Left Comments Deferred, not appropriate due to recent surgery. Elbow/Forearm Strength Elbow and Forearm Manual Muscle Testing Left Flexion (C6) 3- Fair- Comments Not able to assess extension due necessary positioning to test not appropriate due to recent surgery. Hand Applications Trainer/Pinch Strength Hand Strength Left Comments Decreased hand squeeze when compared to R dominant side. PT-OP-Q Treatments Start: 05/27/20 17:54 Freq: Status: Active Protocol: Document 06/13/20 11:20 LRN (Rec: 06/13/20 12:03 LRN [id number]) Therapeutic Exercises Sitting Exercises Scap retract/depression Sitting Exercise Name Scap retraction w/depression Side left Reps/Minutes 10x Scapular retraction Sitting Exercise Name Scapular retraction Side bilateral Resistance AROM Reps/Minutes 10x Comments cued chest lift. Neck stretches Sitting Exercise Name Neck AROM (rot & ext stretch) Side bilateral Reps/Minutes 10s hold ext Standing Exercises Scapular AROM Standing Exercise Name Protraction/retraction Side left Reps/Minutes 2' Arm dangle and scapular retraction when sling doffed Side left Codman Exercise Standing Exercise Name Codman's (pendulums) Side left Reps/Minutes 10x 3 Comments good form. Manual Therapy Treatment Soft Tissue Mobilization PROM L shoulder Body Location L shoulder Mobilization Type Other Body Position Supine Comments PROM L shoulder Flex, AB, ER PT-OP-R Modalities Start: 05/27/20 17:54 Freq: Status: Active Protocol: Document 06/13/20 11:20 LRN (Rec: 06/13/20 12:03 LRN [id number]) Hot Pack/Cold Pack Treatment Hot Pack Location L shoulder during PROM Patient Position Supine Patient Tolerance Good PT-OP-T Assessment and Plan Start: 05/27/20 17:54 Freq: Status: Active Protocol: Document 11/19/20 11:20 LRN (Rec: 11/19/20 12:03 LRN [id number]) Physical Therapy Assessment Goals Five Impairment L shoulder weakness (limited to passive movement) Dialysis Social Worker Goal (LTG) Improve active strength per protocol to improve ability to dress herself (pull up her pants) and wash her R arm or to do wash dishes (if appropriate per post-op protocol) LTG Duration 6 weeks (07/09/20) Four Impairment L shoulder pain rated 6/10 hindering sleep (waking 1x due to shldr pain) Group Home Goal (LTG) Pt will not experience sleep disturbance due to L shoulder pain. LTG Duration 6 weeks (07/09/20) Three Impairment Decreased L shoulder PROM ( flexion 60 deg's, horiz AB 10 deg's) Short Term Goal (STG) Goals per primary physician's post-op protocol (gradually increase shoulder ROM and improve independence. NO active elbow flex/sup, no lifting > 5#) STG Duration 4 weeks (06/25/20) Group Home Goal (LTG) Pt will be started on a self care HEP of ROM & strengthening exercises appropriate for her condition at discharge. (Wks 4-12: NO ER>30 degs, NO FF > 120 degs & no maximal cuff activiation until 6 wks, Wean sling during week six, all as per MD protocol). LTG Duration 6 weeks (07/09/20) (06/11/20: Progressing) Two Impairment Decreased function per UE QuickDASH score 40.9 (40-59% impaired) Dialysis Social Worker Goal (LTG) Improve UE QuickDASH score no more than 27.27 (29-39% impaired) LTG Duration 6 weeks (07/09/20) One Impairment Lacks appropriate self care HEP Group Home Goal (LTG) Pt will be independent in a self care HEP. LTG Duration 6 weeks (07/09/20) (06/11/20: Progressing) Progress Towards Goals Progress Towards Goals Progressing Toward Goals,Goals Met Assessment Summary Assessment Pt s/p 4 weeks tomorrow. L shoulder PROM is improving: Flex is 105 degs, AB is 62 degs and ER is 10 degs. Pt is reporting cooking and passively stretching her R shoulder with arm on counter ( supported forearm only); therefore pt may be doing too much actively with L shoulder. Overall pt appears to be doing quite well. Physical Therapy Plan Frequency and Duration Frequency of Treatment 2x/Week Plan of Care Start Date 05/28/20 Plan of Care End Date 07/27/20 Next Visit Focus/Plan Next Note Type Treatment Note Next Visit Plan Add resisted L scap stabilization, restore normal SHR/Neuromuscular control, improve ROM 80-100% in next 8 weeks (wks 4-12). Increase HEP to 3x/day. NOTE: (Wks 4-12: NO ER>30 degs, NO FF > 120 degs & no maximal cuff activiation until 6 wks, Wean sling during week six, all as per MD protocol). Improve wrist/hand ROM & gripping strength. Normal elevation in scapular plane, trunk motion flex/scap protraction & ext/scap retraction. Cryo cuff to L shoulder to end . MH if helpful during PROM. SEE PROTOCOL in chart.
--- NOTE | 2020-06-19 11:17 | PT.OTN ---
Current Diagnoses Muscle weakness (generalized) (06/19/20) Strain of muscle(s) and tendon(s) of the rotator cuff of left shoulder, initial encounter (06/19/20) Physical Therapy Treatment Note PT-OP-A Visit Information Start: 05/27/20 17:54 Freq: Status: Active Protocol: Document 06/19/20 10:34 MB (Rec: 06/19/20 11:16 MB [id number]) Out-Patient Physical Therapy Visit Information Visit Information Visit Type Treatment Note Visit Note Pt is 5 weeks post-op Visit Start Time 10:34 Visit Stop Time 11:15 Total Visit Minutes 41 Visit Number 7 Precautions Precautions Arthritis in shoulders, Benign Melanoma removed x 4 (back, neck, L arm deltoid region), Depression controlled by medication, Neuropathy ( burning pain if on feet too long) in feet bilaterally. PT-OP-B Current Condition Start: 05/27/20 17:54 Freq: Status: Active Protocol: Document 05/28/20 11:23 LRN (Rec: 05/28/20 12:19 LRN [id number]) Current Condition History of Current Condition Onset Date Fell 04/13/20, surgery 05/17/20 Current Complaints Pain in top of L shoulder and tender to touch, can't move shoulder. History of Current Condition Fell down steps at home, in [place], landing on L shoulder (non-dominant side), and tore it in 3 spots. Had surgery 05/17/20 with repair. Pt is 1.5 weeks post op. F/U virtual appt is tomorrow. Pt is planning on staying her with daughter until 1st or 2nd week of Jun. Pt is R handed . Pt in sling with AB pillow. Prior Treatments and Tests Pt report told by to do pendulum swings. Was told to take arm out of sling to shower, dress and exercise. 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 Treatment Goals Patient/Caregiver Goals half-way goal: Return of ROM and strength to return to work. Pt is not sure what the short term goals are. 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 Baseline Function- Recreation/Hobbies Golf, and fishing Current Functional Impairments (Reported) Functional Limitations- ADL's Pt has difficulty with dressing, washing (self and dishes), Sleep disturbance 1x/ night. Functional Limitations- Work/School Unable to work at this time. Functional Limitations- Recreation/ Unable golf. Hobbies Personal Factors Other Personal Factors That May Effect Lives alone in [place], in Therapy/Recovery [place] at daughter's request. Is planning on being in [place] 6 weeks (until can drive). Arthritis in shoulders, benign Melanoma removed x 4 (back, neck, L arm deltoid region), Depression controlled by medication. PT-OP-C Subjective Start: 05/27/20 17:54 Freq: Status: Active Protocol: Document 06/19/20 10:34 MB (Rec: 06/19/20 11:16 MB [id number]) OP-PT Subjective Patient Comments Patient Comments After next week, I'll be going back to [place] and will con't with rehab there. I leave on Jun 28. PT-OP-E Functional Tests Start: 05/27/20 17:54 Freq: Status: Active Protocol: Document 05/28/20 11:23 LRN (Rec: 05/28/20 12:19 LRN [id number]) Functional Tests Apley's Scratch Test Action 1- Right Back of shoulder Action 2- Right T2 Action 3- Right L4 PT-OP-H Neuro Start: 05/27/20 17:54 Freq: Status: Active Protocol: Document 05/28/20 11:23 LRN (Rec: 05/28/20 12:19 LRN [id number]) Sensation Evaluation Gross Sensation Gross Sensation WNL PT-OP-J Posture/Palpation/Skin Start: 05/27/20 17:54 Freq: Status: Active Protocol: Document 05/28/20 11:23 LRN (Rec: 05/28/20 12:19 LRN [id number]) Posture Evaluation Position Sitting Evaluation View Anterior Shoulder Posture (L) Forward Scapula Posture (L) Protracted PT-OP-K Range of Motion Start: 05/27/20 17:54 Freq: Status: Active Protocol: Document 06/13/20 11:20 LRN (Rec: 06/13/20 12:03 LRN [id number]) Shoulder Goniometric Range of Motion Shoulder Left Passive Testing Position Supine Flexion 105 Abduction 62 External Rotation at 0 degrees Abduction 10 PT-OP-M Strength Start: 05/27/20 17:54 Freq: Status: Active Protocol: Document 05/28/20 11:23 LRN (Rec: 05/28/20 19:48 LRN [id number]) Cervical Spine Strength Cervical Spine Manual Muscle Testing Comments Deferred, due to recent surgery. Protocol precautions not available. Shoulder Strength Shoulder Manual Muscle Testing Left Comments Deferred, not appropriate due to recent surgery. Elbow/Forearm Strength Elbow and Forearm Manual Muscle Testing Left Flexion (C6) 3- Fair- Comments Not able to assess extension due necessary positioning to test not appropriate due to recent surgery. Hand Sunglass Clip Attacher/Pinch Strength Hand Strength Left Comments Decreased hand squeeze when compared to R dominant side. PT-OP-Q Treatments Start: 05/27/20 17:54 Freq: Status: Active Protocol: Document 06/19/20 10:34 MB (Rec: 06/19/20 11:16 MB [id number]) Therapeutic Exercises Sitting Exercises AAROM/sliding hand with upper body assist flexion and abduction on table Side left Comments 10 flexion and pt feels fine, discomfort with 45 deg scaption (abd) d/cd Standing Exercises Intrascapular massage with racquet ball Side left Comments Performed I today Manual Therapy Treatment Other Other Manual Treatments Right scapular mobs, cannot tolerate left scapular mobs and so modified to very gentle scapular cupping type movement/shaking (grade I mobility), grade II-III mobs PA thoracic spine, rib recoil PT-OP-R Modalities Start: 05/27/20 17:54 Freq: Status: Active Protocol: Document 06/13/20 11:20 LRN (Rec: 06/13/20 12:03 LRN [id number]) Hot Pack/Cold Pack Treatment Hot Pack Location L shoulder during PROM Patient Position Supine Patient Tolerance Good PT-OP-T Assessment and Plan Start: 05/27/20 17:54 Freq: Status: Active Protocol: Document 06/19/20 10:34 MB (Rec: 06/19/20 11:16 MB [id number]) Physical Therapy Assessment Goals Five Impairment L shoulder weakness (limited to passive movement) Mcc Goal (LTG) Improve active strength per protocol to improve ability to dress herself (pull up her pants) and wash her R arm or to do wash dishes (if appropriate per post-op protocol) LTG Duration 6 weeks (07/09/20) Four Impairment L shoulder pain rated 6/10 hindering sleep (waking 1x due to shldr pain) Timber Grader Goal (LTG) Pt will not experience sleep disturbance due to L shoulder pain. LTG Duration 6 weeks (07/09/20) Three Impairment Decreased L shoulder PROM ( flexion 60 deg's, horiz AB 10 deg's) Short Term Goal (STG) Goals per primary physician's post-op protocol (gradually increase shoulder ROM and improve independence. NO active elbow flex/sup, no lifting > 5#) STG Duration 4 weeks (06/25/20) Mcc Goal (LTG) Pt will be started on a self care HEP of ROM & strengthening exercises appropriate for her condition at discharge. (Wks 4-12: NO ER>30 degs, NO FF > 120 degs & no maximal cuff activiation until 6 wks, Wean sling during week six, all as per MD protocol). LTG Duration 6 weeks (07/09/20) (06/11/20: Progressing) Two Impairment Decreased function per UE QuickDASH score 40.9 (40-59% impaired) Timber Grader Goal (LTG) Improve UE QuickDASH score no more than 27.27 (29-39% impaired) LTG Duration 6 weeks (07/09/20) One Impairment Lacks appropriate self care HEP Timber Grader Goal (LTG) Pt will be independent in a self care HEP. LTG Duration 6 weeks (07/09/20) (06/11/20: Progressing) Progress Towards Goals Progress Towards Goals Progressing Toward Goals Assessment Summary Assessment Daughter did not come to appointment. Pt has two more treatments at this clinic before returning home to [place]. Initiated ARROM/PROM over table left shoulder flexion today per primary therapist's recommendation. Encouraged pt not to overdo this exercise. Using wash cloth made passive assistance better. She could not tolerate scaption/ abduction plane. She may benefit from hook lying AAROM with cane if the table exercise is too aggressive. Physical Therapy Plan Frequency and Duration Frequency of Treatment 2x/Week Plan of Care Start Date 05/28/20 Plan of Care End Date 07/27/20 Next Visit Focus/Plan Next Note Type Treatment Note Next Visit Plan Consider cane AAROM in hook lying as a less aggressive range exercise. Add resisted L scap stabilization, restore normal SHR/Neuromuscular control, improve ROM 80-100% in next 8 weeks (wks 4-12). Increase HEP to 3x/day. NOTE: (Wks 4-12: NO ER>30 degs, NO FF > 120 degs & no maximal cuff activiation until 6 wks, Wean sling during week six, all as per MD protocol). Improve wrist/hand ROM & gripping strength. Normal elevation in scapular plane, trunk motion flex/scap protraction & ext/scap retraction. Cryo cuff to L shoulder to end . MH if helpful during PROM. SEE PROTOCOL in chart.
--- NOTE | 2020-06-24 16:18 | PT.OTN ---
Current Diagnoses Muscle weakness (generalized) (06/24/20) Strain of muscle(s) and tendon(s) of the rotator cuff of left shoulder, initial encounter (06/24/20) Physical Therapy Treatment Note PT-OP-A Visit Information Start: 05/27/20 17:54 Freq: Status: Active Protocol: Document 06/24/20 09:02 LRN (Rec: 06/24/20 09:50 LRN [id number]) Out-Patient Physical Therapy Visit Information Visit Information Visit Type Treatment Note Visit Note Pt s/p 6 weeks post-op tomorrow. Visit Start Time 09:02 Visit Stop Time 09:52 Total Visit Minutes 50 Visit Number 8 Evaluation Information Evaluation Date 05/28/20 Precautions Precautions Arthritis in shoulders, Benign Melanoma removed x 4 (back, neck, L arm deltoid region), Depression controlled by medication, Neuropathy ( burning pain if on feet too long) in feet bilaterally. PT-OP-B Current Condition Start: 05/27/20 17:54 Freq: Status: Active Protocol: Document 05/28/20 11:23 LRN (Rec: 05/28/20 12:19 LRN [id number]) Current Condition History of Current Condition Onset Date Fell 04/13/20, surgery 05/17/20 Current Complaints Pain in top of L shoulder and tender to touch, can't move shoulder. History of Current Condition Fell down steps at home, in [place], landing on L shoulder (non-dominant side), and tore it in 3 spots. Had surgery 05/17/20 with repair. Pt is 1.5 weeks post op. F/U virtual appt is tomorrow. Pt is planning on staying her with daughter until or 2nd week of Jun. Pt is R handed . Pt in sling with AB pillow. Prior Treatments and Tests Pt report told by MD to do pendulum swings. Was told to take arm out of sling to shower, dress and exercise. 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 Treatment Goals Patient/Caregiver Goals terminal gauger goal: Return of ROM and strength to return to work. Pt is not sure what the short term goals are. 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 Baseline Function- Recreation/Hobbies Golf, and fishing Current Functional Impairments (Reported) Functional Limitations- ADL's Pt has difficulty with dressing, washing (self and dishes), Sleep disturbance 1x/ night. Functional Limitations- Work/School Unable to work at this time. Functional Limitations- Recreation/ Unable golf. Hobbies Personal Factors Other Personal Factors That May Effect Lives alone in [place], in Therapy/Recovery [place] at daughter's request. Is planning on being in [place] 6 weeks (until can drive). Arthritis in shoulders, benign Melanoma removed x 4 (back, neck, L arm deltoid region), Depression controlled by medication. PT-OP-C Subjective Start: 05/27/20 17:54 Freq: Status: Active Protocol: Document 06/24/20 09:02 LRN (Rec: 06/24/20 09:50 LRN [id number]) OP-PT Subjective Patient Comments Patient Comments Feeling good. Forgot sling. Hurts all the time. Pain is 2 -3/10. States last appt is , in 4 days, PT-OP-E Functional Tests Start: 05/27/20 17:54 Freq: Status: Active Protocol: Document 05/28/20 11:23 LRN (Rec: 05/28/20 12:19 LRN [id number]) Functional Tests Apley's Scratch Test Action 1- Right Back of shoulder Action 2- Right T2 Action 3- Right L4 PT-OP-H Neuro Start: 05/27/20 17:54 Freq: Status: Active Protocol: Document 05/28/20 11:23 LRN (Rec: 05/28/20 12:19 LRN [id number]) Sensation Evaluation Gross Sensation Gross Sensation WNL PT-OP-J Posture/Palpation/Skin Start: 05/27/20 17:54 Freq: Status: Active Protocol: Document 05/28/20 11:23 LRN (Rec: 05/28/20 12:19 LRN [id number]) Posture Evaluation Position Sitting Evaluation View Anterior Shoulder Posture (L) Forward Scapula Posture (L) Protracted PT-OP-K Range of Motion Start: 05/27/20 17:54 Freq: Status: Active Protocol: Document 06/24/20 09:02 LRN (Rec: 06/24/20 09:50 LRN [id number]) Shoulder Goniometric Range of Motion Shoulder Left Active Assisted Shoulder ROM WFL No Testing Position Supine Flexion 110 Abduction 62 External Rotation at 0 degrees Abduction 18 Comments Pt used cane to assist. PT-OP-M Strength Start: 05/27/20 17:54 Freq: Status: Active Protocol: Document 05/28/20 11:23 LRN (Rec: 05/28/20 19:48 LRN [id number]) Cervical Spine Strength Cervical Spine Manual Muscle Testing Comments Deferred, due to recent surgery. Protocol precautions not available. Shoulder Strength Shoulder Manual Muscle Testing Left Comments Deferred, not appropriate due to recent surgery. Elbow/Forearm Strength Elbow and Forearm Manual Muscle Testing Left Flexion (C6) 3- Fair- Comments Not able to assess extension due necessary positioning to test not appropriate due to recent surgery. Hand Clay Thrower/Pinch Strength Hand Strength Left Comments Decreased hand squeeze when compared to R dominant side. PT-OP-Q Treatments Start: 05/27/20 17:54 Freq: Status: Active Protocol: Document 06/24/20 09:02 LRN (Rec: 06/24/20 09:50 LRN [id number]) Therapeutic Exercises Supine Exercises AA shoulder ER Supine Exercise Name Cane shoulder ER AAROM Side left Reps/Minutes 4' Comments Extra time to teach as self care HEP AA shoulder Flex Supine Exercise Name Self assisted shoulder flexion Side left Reps/Minutes 4' Comments Extra time to teach as self care HEP Rhythmic Stabilization Supine Exercise Name Humeral Head Rhythmic Stabilization Side left Reps/Minutes 5' Sidelying Exercises Scapular Depression Sidelying Exercise Name Scapular Depression Side left Reps/Minutes 10x -2' Comments Performed in supine Scapular Retraction/Protraction Sidelying Exercise Name Scapular Retraction/ Protraction Side left Reps/Minutes 10x -2' Comments Performed in supine Sitting Exercises Forearm sup Sitting Exercise Name Supinatioin Side left Reps/Minutes 3' AAROM/sliding hand with upper body assist flexion and abduction on table Sitting Exercise Name self assisted sliding forward and AB Side left Reps/Minutes 14 Self-Care/Home Management Treatment Education Patient Education Home Exercise Program Activities Self-Care/Home Management Activities Self care I/S for ROM ex to do on airplane using tray table (flex, AB). PT-OP-R Modalities Start: 05/27/20 17:54 Freq: Status: Active Protocol: Document 06/24/20 09:02 LRN (Rec: 06/24/20 09:50 LRN [id number]) Hot Pack/Cold Pack Treatment Cold Pack Location L shoulder Patient Position Hooklying Treatment Duration (minutes) 10 PT-OP-T Assessment and Plan Start: 05/27/20 17:54 Freq: Status: Active Protocol: Document 06/24/20 09:02 LRN (Rec: 06/24/20 09:50 LRN [id number]) Physical Therapy Assessment Goals Five Impairment L shoulder weakness (limited to passive movement) Hydration Plant Operator Goal (LTG) Improve active strength per protocol to improve ability to dress herself (pull up her pants) and wash her R arm or to do wash dishes (if appropriate per post-op protocol) LTG Duration 6 weeks (07/09/20) Four Impairment L shoulder pain rated 6/10 hindering sleep (waking 1x due to shldr pain) Hydration Plant Operator Goal (LTG) Pt will not experience sleep disturbance due to L shoulder pain. LTG Duration 6 weeks (07/09/20) Three Impairment Decreased L shoulder PROM ( flexion 60 deg's, horiz AB 10 deg's) Short Term Goal (STG) Goals per primary physician's post-op protocol (gradually increase shoulder ROM and improve independence. NO active elbow flex/sup, no lifting > 5#) STG Duration 4 weeks (06/25/20) Hydration Plant Operator Goal (LTG) Pt will be started on a self care HEP of ROM & strengthening exercises appropriate for her condition at discharge. (Wks 4-12: NO ER>30 degs, NO FF > 120 degs & no maximal cuff activiation until 6 wks, Wean sling during week six, all as per MD protocol). LTG Duration 6 weeks (07/09/20) (06/11/20: Progressing) Two Impairment Decreased function per UE QuickDASH score 40.9 (40-59% impaired) Senior Living Goal (LTG) Improve UE QuickDASH score no more than 27.27 (29-39% impaired) LTG Duration 6 weeks (07/09/20) One Impairment Lacks appropriate self care HEP Hydration Plant Operator Goal (LTG) Pt will be independent in a self care HEP. LTG Duration 6 weeks (07/09/20) (06/11/20: Progressing) Progress Towards Goals Progress Towards Goals Progressing Toward Goals Progress Comments L shoulder mobility is improving. AAROM: Flex is 110 degs (PROM was 105 degs), AB is 62 degs ( PROM was 62 degs), ER at 0 deg 's AB is 18 degs (PROM was 10 degs). Assessment Summary Assessment Pt is in Moderate Protection ( 4-6 wks post-op). L shoulder PROM is improving and she tolerates AAROM without difficulty. She tolerated Humeral Head rhythmic stabilization without complaints of pain. PROM goal of ER 15 degs was met. FF scapular plane 120 degs is improving. Next week pt will be able to progress into the 7 -12 week phase of rehabilitation. Pt is seen moving her L arm independently in ~10-20 deg's of AROM although verbal precautions are reviewed. Physical Therapy Plan Frequency and Duration Frequency of Treatment 2x/Week Plan of Care Start Date 05/28/20 Plan of Care End Date 07/27/20 Next Visit Focus/Plan Next Note Type Discharge Summary Next Visit Plan Review self assist cane AAROM exercises and try cane AAROM in hook lying. Add resisted L scap stabilization. Review recommendation of HEP to 3x/day. NOTE: (Wks 4-12: NO ER>30 degs, NO FF > 120 degs & no maximal cuff activation until 6 wks, Wean sling during week six, all as per MD protocol). Start active assisted elbow flexion/supination.
--- NOTE | 2020-06-27 17:17 | PT.OTN ---
Current Diagnoses Muscle weakness (generalized) (06/27/20) Strain of muscle(s) and tendon(s) of the rotator cuff of left shoulder, initial encounter (06/27/20) Physical Therapy Treatment Note PT-OP-A Visit Information Start: 05/27/20 17:54 Freq: Status: Active Protocol: Document 06/27/20 14:30 LRN (Rec: 06/27/20 15:36 LRN [id number]) Out-Patient Physical Therapy Visit Information Visit Information Visit Type Discharge Summary Visit Note Pt is s/p 6-1/2 weeks Visit Start Time 14:30 Visit Stop Time 15:24 Total Visit Minutes 54 Visit Number 9 Evaluation Information Evaluation Date 05/28/20 Precautions Precautions Arthritis in shoulders, Benign Melanoma removed x 4 (back, neck, L arm deltoid region), Depression controlled by medication, Neuropathy ( burning pain if on feet too long) in feet bilaterally. PT-OP-B Current Condition Start: 05/27/20 17:54 Freq: Status: Active Protocol: Document 05/28/20 11:23 LRN (Rec: 05/28/20 12:19 LRN [id number]) Current Condition History of Current Condition Onset Date Fell 04/13/20, surgery 05/17/20 Current Complaints Pain in top of L shoulder and tender to touch, can't move shoulder. History of Current Condition Fell down steps at home, in [place], landing on L shoulder (non-dominant side), and tore it in 3 spots. Had surgery 05/17/20 with repair. Pt is 1.5 weeks post op. F/U virtual appt is tomorrow. Pt is planning on staying her with daughter until or 2nd week of Jun. Pt is R handed . Pt in sling with AB pillow. Prior Treatments and Tests Pt report told by MD to do pendulum swings. Was told to take arm out of sling to shower, dress and exercise. 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 Treatment Goals Patient/Caregiver Goals USP goal: Return of ROM and strength to return to work. Pt is not sure what the short term goals are. 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 Baseline Function- Recreation/Hobbies Golf, and fishing Current Functional Impairments (Reported) Functional Limitations- ADL's Pt has difficulty with dressing, washing (self and dishes), Sleep disturbance 1x/ night. Functional Limitations- Work/School Unable to work at this time. Functional Limitations- Recreation/ Unable golf. Hobbies Personal Factors Other Personal Factors That May Effect Lives alone in [place], in Therapy/Recovery [place] at daughter's request. Is planning on being in [place] 6 weeks (until can drive). Arthritis in shoulders, benign Melanoma removed x 4 (back, neck, L arm deltoid region), Depression controlled by medication. PT-OP-C Subjective Start: 05/27/20 17:54 Freq: Status: Active Protocol: Document 06/27/20 14:30 LRN (Rec: 06/27/20 15:36 LRN [id number]) OP-PT Subjective Patient Comments Patient Comments Doing good. Patient Questionnaires Quick Dash- Upper Extremity Quick Dash UE Score 38.63 Quick Dash UE Impairment 20 to 39% Impaired (Score 20- 39) OP-PT Pain Assessment Pain Assessment Grid Paper Pain Assessment Grid Completed Yes Location L anterior shoulder and upper lateral arm Pain Location Details Anterior shoulder an upper lateral L arm Intensity 1 PT-OP-E Functional Tests Start: 05/27/20 17:54 Freq: Status: Active Protocol: Document 05/28/20 11:23 LRN (Rec: 05/28/20 12:19 LRN [id number]) Functional Tests Apley's Scratch Test Action 1- Right Back of shoulder Action 2- Right T2 Action 3- Right L4 PT-OP-H Neuro Start: 05/27/20 17:54 Freq: Status: Active Protocol: Document 05/28/20 11:23 LRN (Rec: 05/28/20 12:19 LRN [id number]) Sensation Evaluation Gross Sensation Gross Sensation WNL PT-OP-J Posture/Palpation/Skin Start: 05/27/20 17:54 Freq: Status: Active Protocol: Document 05/28/20 11:23 LRN (Rec: 05/28/20 12:19 LRN [id number]) Posture Evaluation Position Sitting Evaluation View Anterior Shoulder Posture (L) Forward Scapula Posture (L) Protracted PT-OP-K Range of Motion Start: 05/27/20 17:54 Freq: Status: Active Protocol: Document 12/03/20 14:30 LRN (Rec: 06/27/20 15:36 LRN [id number]) Shoulder Goniometric Range of Motion Shoulder Left Active Assisted Shoulder ROM WFL No Testing Position Supine Flexion 138 Extension 37 Abduction 73 External Rotation at 0 degrees Abduction 22 Comments Pt used cane to assist. Right Active Shoulder ROM WFL Yes Testing Position Sitting Flexion 160 Extension 50 Abduction 165 External Rotation at 0 degrees Abduction 63 Internal Rotation Behind Back (text) L4 Elbow/Forearm Range of Motion Elbow/Forearm Left Active Elbow/Forearm ROM WFL No ROM Testing Position Supine Elbow Flexion (degrees) 129 Pronation (degrees) 90 Supination (degrees) 40 Right Active Elbow/Forearm ROM WFL Yes ROM Testing Position Supine Elbow Flexion (degrees) 135 Pronation (degrees) 90 Supination (degrees) 40 PT-OP-M Strength Start: 05/27/20 17:54 Freq: Status: Active Protocol: Document 05/28/20 11:23 LRN (Rec: 05/28/20 19:48 LRN [id number]) Cervical Spine Strength Cervical Spine Manual Muscle Testing Comments Deferred, due to recent surgery. Protocol precautions not available. Shoulder Strength Shoulder Manual Muscle Testing Left Comments Deferred, not appropriate due to recent surgery. Elbow/Forearm Strength Elbow and Forearm Manual Muscle Testing Left Flexion (C6) 3- Fair- Comments Not able to assess extension due necessary positioning to test not appropriate due to recent surgery. Hand Remelt Sugar Boiler/Pinch Strength Hand Strength Left Comments Decreased hand squeeze when compared to R dominant side. PT-OP-Q Treatments Start: 05/27/20 17:54 Freq: Status: Active Protocol: Document 06/27/20 14:30 LRN (Rec: 06/27/20 15:36 LRN [id number]) Therapeutic Exercises Supine Exercises Forearm sup/prong Supine Exercise Name Supination/Pronation Side left Reps/Minutes 4' AA shoulder ER Supine Exercise Name Cane shoulder ER AAROM Side left Reps/Minutes 4' Comments Extra time to teach as self care HEP AA shoulder Flex Supine Exercise Name Self assisted shoulder flexion Side left Reps/Minutes 8' Comments Extra time to teach as self care HEP Rhythmic Stabilization Supine Exercise Name Humeral Head Rhythmic Stabilization Side left Reps/Minutes 5' Passive shoulder flex Supine Exercise Name PROM L shoulder: Flex, ER Sidelying Exercises Scapular Depression Sidelying Exercise Name Scapular Depression Side left Resistance Manual Reps/Minutes 3' Comments Performed in supine Scapular Retraction/Protraction Sidelying Exercise Name Scapular Retraction/ Protraction Side left Resistance Manual Reps/Minutes 3' Comments Performed in supine Self-Care/Home Management Treatment Education Patient Education Home Exercise Program Activities Self-Care/Home Management Activities Issued & reviewed HEP: Scapular strengthening & Cane ex's for active assistive exercises. PT-OP-R Modalities Start: 05/27/20 17:54 Freq: Status: Active Protocol: Document 06/27/20 14:30 LRN (Rec: 06/27/20 15:36 LRN [id number]) Hot Pack/Cold Pack Treatment Cold Pack Location L shoulder Patient Position Hooklying Treatment Duration (minutes) 5 Comments Pt took disposable ice pack home. PT-OP-T Assessment and Plan Start: 05/27/20 17:54 Freq: Status: Active Protocol: Document 06/27/20 14:30 LRN (Rec: 06/27/20 15:36 LRN [id number]) Physical Therapy Assessment Goals Five Impairment L shoulder weakness (limited to passive movement) Skilled Nursing Goal (LTG) Improve active strength per protocol to improve ability to dress herself (pull up her pants) and wash her R arm or to do wash dishes (if appropriate per post-op protocol) LTG Duration 6 weeks (06/27/20: NOT MET GOAL, Goal not appropriate per MD protocol) Four Impairment L shoulder pain rated 6/10 hindering sleep (waking 1x due to shldr pain) Towerman Goal (LTG) Pt will not experience sleep disturbance due to L shoulder pain. LTG Duration 6 weeks (06/27/20: Improved) Three Impairment Decreased L shoulder PROM ( flexion 60 deg's, horiz AB 10 deg's) Short Term Goal (STG) Goals per primary physician's post-op protocol (gradually increase shoulder ROM and improve independence. NO active elbow flex/sup, no lifting > 5#). (06/27/20: L shoulder AAROM: Flex 138 deg's, ER 22 degs at 0 degs AB; Protocol is FF scapular plane 120 degs, ER to 15 degs). STG Duration 4 weeks (06/27/20: MET GOAL) Skilled Nursing Goal (LTG) Pt will be started on a self care HEP of ROM & strengthening exercises appropriate for her condition at discharge. (Up to wk 6: NO ER>30 degs, NO FF > 120 degs & no maximal cuff activation until 6 wks, Wean sling during week six, all as per MD protocol). LTG Duration 6 weeks (07/09/20) (06/28/20: MET GOAL) Two Impairment Decreased function per UE QuickDASH score 40.9 (40-59% impaired) Towerman Goal (LTG) Improve UE QuickDASH score no more than 27.27 (29-39% impaired) (06/27/20: UE QuickDASH score is 38) LTG Duration 6 weeks (06/27/20: NOT MET. Early DC.) One Impairment Lacks appropriate self care HEP Towerman Goal (LTG) Pt will be independent in a self care HEP. LTG Duration 6 weeks (07/09/20) (06/27/20: Goal met for current condition) Assessment Summary Assessment The pt has improved in her L shoulder ROM and has met the ROM goals up to week 6 of her post-op protocol. She has been started today on AAROM using a cane for the first time. She will need review of her active assisted home program when she begins her therapy in [place]. The pt has done very well and has had very good support from her daughter at home doing her PROM exercises daily. It is expected the pt will do well with her rehabilitation program. Physical Therapy Plan Discharge Physical Therapy Discharge Reasons Patient Request Discharge Comments Pt returning home to [place] and will resume PT once home. Thank you for your referral .
== END 2020-06-28 11:52 ==
LOC: PHYS 14:15
PROVIDERS: PCP Family Medicine
DX: S46.012A Strain of muscle(s) and tendon(s) of the rotator cuff of left shoulder, initial encounter (principal); M62.81 Muscle weakness (generalized)
CPT/HCPCS: 97110; 97140; 97162; 97535